=== PATIENT | female | born 2000 | race African-American/Black ===

== ENCOUNTER 2023-01-25 17:15 | Observation (INO) | payer MEDICAID, OTHER ==
[~2023-01-25] VITALS: Ht 167.6 cm; Wt 66.7 kg
[2023-01-25] MEDS ORDERED: TERBUTALINE SULFATE 1 MG/ML 1ML VIAL SC PRN (20:00)
[2023-01-25] MEDS ORDERED: LACTATED RINGER'S 1,000 ML IV ONE (20:00)
[2023-01-25] MEDS ORDERED: BETAMETHASONE ACET (30mg/5ml) 5ml Vial 6mg/ml IM SCH (20:15)
[2023-01-26] MEDS ORDERED: PREN27TA7 PO (23:34)
== END 2023-01-26 00:22 | disposition home or self-care (01) ==
LOC: LDRP 17:15 → NUR 17:16 → LDRP 17:18
PROVIDERS: ADMIT Obstetrics & Gynecology; ATTEND Obstetrics & Gynecology
DX: O26.893 Other specified pregnancy related conditions, third trimester (principal); M54.6 Pain in thoracic spine; Z3A.30 30 weeks gestation of pregnancy; V43.52XA Car driver injured in collision with other type car in traffic accident, initial encounter; Y93.89 Activity, other specified; Y92.89 Other specified places as the place of occurrence of the external cause; Y99.8 Other external cause status
CPT/HCPCS: 59025; 76805; 76815; 81002; 94760; 96360; 96361; 96372; G0378; J0702; J3105

== ENCOUNTER 2023-01-26 23:20 | Observation (INO) | payer MEDICAID ==
[~2023-01-26] VITALS: Ht 167.6 cm; Wt 67.6 kg
[2023-01-26] MEDS ORDERED: BETAMETHASONE ACET (30mg/5ml) 5ml Vial 6mg/ml IM ONE ×2 (23:30→23:45)
[2023-01-26] MEDS ORDERED: PREN27TA7 PO (23:34)
== END 2023-01-27 00:20 | disposition home or self-care (01) ==
LOC: LDRP 23:20
PROVIDERS: ADMIT Obstetrics & Gynecology; ATTEND Obstetrics & Gynecology
DX: O99.891 Other specified diseases and conditions complicating pregnancy (principal); M54.9 Dorsalgia, unspecified; Z3A.30 30 weeks gestation of pregnancy; V89.2XXA Person injured in unspecified motor-vehicle accident, traffic, initial encounter; Y93.89 Activity, other specified; Y92.410 Unspecified street and highway as the place of occurrence of the external cause; Y99.8 Other external cause status
CPT/HCPCS: 96372; G0378